=== PATIENT | male | born 1975 | race American Indian/Alaskan Native ===

== ENCOUNTER 2018-10-26 18:42 | Inpatient (IN) | payer OTHER ==
[2018-10-26] MEDS ORDERED: ASPIRIN PO ONE (20:23)
--- NOTE | 2018-10-26 21:27 | Emergency Department Report ---
ED Chest Pain HPI - General Chief Complaint: Chest Pain Stated Complaint: CHEST PAIN Time Seen by Provider: 10/26/18 21:12 Source: RN notes reviewed Mode of arrival: Ambulatory Limitations: No Limitations - History of Present Illness Initial Comments: Patient is 43 years old male with history of hypertension. Patient presented to the ER complaining of substernal chest pain, sharp was no radiation. Patient stated that pain has been going on for the last 2 days, intermittent. No relieving or aggravating factors. Patient also stated that he noticed that he started to have shortness of breath even when he woke up for a short distance. The patient denied any fever, chills, nausea or vomiting. MD Complaint: chest pain -: days(s) (2) Onset: during rest Pain Location: substernal Pain Radiation: none Severity: moderate Severity scale (0 -10): 5 Quality: sharp Consistency: intermittent Improves With: nothing Worsens With: nothing Treatments Prior to Arrival: none - Related Data Previous Rx's Medication Instructions Recorded Last Taken Type Butalb/Acetamin/Caff 50-325-40 1 tab PO Q6HR PRN #12 tab 06/03/18 Unknown Rx [Fioricet] Allergies Allergy/AdvReac Type Severity Reaction Status Date / Time No Known Allergies Allergy Unverified 06/03/18 21:33 Heart Score - HEART Score History: Moderately suspicious EKG: Non-specific Age: < 45 Risk factors: 1-2 risk factors Troponin: > 3x normal limit HEART Score: 5 - Critical Actions Critical Actions: 4-6 pts:12-16.6% risk of adverse cardiac event. Should be admitted ED Review of Systems ROS: Stated complaint: CHEST PAIN Other details as noted in HPI Comment: All other systems reviewed and negative Constitutional: denies: chills, fever ENT: denies: throat pain Cardiovascular: chest pain. denies: palpitations Gastrointestinal: denies: abdominal pain, nausea, vomiting, diarrhea, constipation, hematemesis, melena, hematochezia Musculoskeletal: denies: back pain Neurological: denies: headache, weakness, numbness, paresthesias, confusion, abnormal gait ED Past Medical Hx - Past Medical History Hx Hypertension: Yes - Social History Smoking Status: Unknown if ever smoked - Medications Home Medications: Home Medications Medication Instructions Recorded Confirmed Last Taken Type Butalb/Acetamin/Caff 50-325-40 1 tab PO Q6HR PRN #12 tab 06/03/18 Unknown Rx [Fioricet] ED Physical Exam - General Limitations: No Limitations General appearance: alert, in no apparent distress - Head Head exam: Present: atraumatic, normocephalic, normal inspection - Eye Eye exam: Present: normal appearance, PERRL - ENT ENT exam: Present: normal exam, normal orophraynx, mucous membranes moist - Neck Neck exam: Present: normal inspection, full ROM. Absent: tenderness, meningismus, lymphadenopathy, thyromegaly - Respiratory Respiratory exam: Present: normal lung sounds bilaterally. Absent: respiratory distress, wheezes, rales, rhonchi, chest wall tenderness, accessory muscle use, decreased breath sounds, prolonged expiratory - Cardiovascular Cardiovascular Exam: Present: regular rate, normal rhythm, normal heart sounds - GI/Abdominal GI/Abdominal exam: Present: soft, normal bowel sounds. Absent: distended, tenderness, guarding, rebound, rigid, organomegaly, mass, bruit, pulsatile mass, hernia - Extremities Exam Extremities exam: Present: normal inspection, full ROM, normal capillary refill - Back Exam Back exam: Present: normal inspection, full ROM. Absent: tenderness, CVA tenderness (R), CVA tenderness (L), muscle spasm, paraspinal tenderness, vertebral tenderness - Neurological Exam Neurological exam: Present: alert, oriented X3, CN II-XII intact - Skin Skin exam: Present: warm, intact, normal color ED Course Vital Signs 10/26/18 10/26/18 10/26/18 20:19 21:43 21:47 Temperature 98.2 F Pulse Rate 106 H 96 H 94 H Respiratory 16 16 Rate Blood Pressure 156/112 Blood Pressure [Right] O2 Sat by Pulse 95 98 Oximetry 10/26/18 10/26/18 10/26/18 21:52 21:59 22:01 Temperature Pulse Rate 95 H 99 H Respiratory 16 16 11 L Rate Blood Pressure 160/114 Blood Pressure 161/110 [Right] O2 Sat by Pulse 98 98 100 Oximetry NATHAN score - Nathan Score Age > 65: (0) No Aspirin use within the Past 7 Days: (0) No 3 or more CAD Risk Factors: (0) No 2 or more Angina events in past 24 hrs: (1) Yes Known CAD with more than 50% Stenosis: (0) No Elevated Cardiac Markers: (1) Yes ST Deviation Greater than 0.5mm: (1) Yes NATHAN Score: 3 ED Medical Decision Making - Lab Data Result diagrams: 10/26/18 21:17 10/26/18 21:17 - EKG Data -: EKG Interpreted by Me EKG shows normal: sinus rhythm Rate: tachycardia - EKG Data Interpretation: no acute changes - Radiology Data Radiology results: image reviewed interpreted by me: Chest x-ray showed pulmonary vascular congestion consistent with CHF. - Medical Decision Making Patient is 43 years old male with history of hypertension. Patient presented to the ER complaining of substernal chest pain, sharp was no radiation. Patient stated that pain has been going on for the last 2 days, intermittent. No relieving or aggravating factors. Patient also stated that he noticed that he s tarted to have shortness of breath even when he woke up for a short distance. The patient denied any fever, chills, nausea or vomiting. Patient EKG did not show any ST elevation or depression but he shows some inverted T waves. First troponin is positive as 0.04. Chest x-ray show pulmonary congestion consistent with CHF I discussed the patient is Dr. Dominguez from cardiology he stated that he will follow up with the patient. I discussed the patient with Dr. Peace Teixeira, she agreed to admit the patient to medical service. Critical Care Time: Yes Critical care time in (mins) excluding proc time.: 30 Critical care attestation.: If time is entered above; I have spent that time in minutes in the direct care of this critically ill patient, excluding procedure time. ED Disposition Clinical Impression: Chest pain, Unstable angina Disposition: OP ADMIT IP TO THIS HOSP Is pt being admited?: Yes Condition: Stable Instructions: Angina (ED), Chest Pain (ED) Referrals: PRIMARY CARE, [Primary Care Provider] - 3-5 Days
[2018-10-26 21:32] LABS: Basophils # (Auto) 0.1 K/mm3 (0.0-0.1); Basophils % (Auto) 1.1 % (0.0-1.8); Eosinophils # (Auto) 0.3 K/mm3 (0.0-0.4); Eosinophils % (Auto) 4.5 % (0.0-4.3); Hematocrit 39.6 % (35.5-45.6); Hemoglobin 13.5 gm/dl (11.8-15.2); Lymphocytes # (Auto) 2.5 K/mm3 (1.2-5.4); Lymphocytes % (Auto) 42.6 % (13.4-35.0); Mean Corpuscular HGB Conc 34 % (32-34); Mean Corpuscular Hemoglobin 29 pg (28-32); Mean Corpuscular Volume 86 fl (84-94); Monocytes # (Auto) 0.6 K/mm3 (0.0-0.8); Platelet Count 333 K/mm3 (140-440); Red Blood Count 4.63 M/mm3 (3.65-5.03); Red Cell Distribution Width 14.2 % (13.2-15.2)
[2018-10-26 21:39] LABS: INR 0.87 (0.87-1.13); Partial Thromboplastin Time 25.9 Sec. (24.2-36.6)
[2018-10-26 21:45] LABS: BUN/Creatinine Ratio 14; Blood Urea Nitrogen 13 mg/dL (9-20); Calcium 9.2 mg/dL (8.4-10.2); Hemolysis Index 27
[2018-10-26 22:28] LABS: Chol/HDL Ratio 3.94 %; HDL Cholesterol 51 mg/dL (40-59); LDL Cholesterol,Direct 127 mg/dL (50-130)
[2018-10-26] MEDS ORDERED: LASIX IV ONE (22:35)
[2018-10-26] MEDS ORDERED: NITROSTAT SL ONE (23:03)
[2018-10-26 23:19] LABS: Amphetamine Screen,Urine PRESUMPTIVE NEGATIVE; Benzodiazepines Screen,Urine PRESUMPTIVE NEGATIVE; Cannabinoid Screen,Urine PRESUMPTIVE NEGATIVE; Cocaine Screen,Urine PRESUMPTIVE NEGATIVE; Methadone Screen,Urine PRESUMPTIVE NEGATIVE; Opiate Screen,Urine PRESUMPTIVE NEGATIVE
--- NOTE | 2018-10-26 23:23 | XRay Report ---
PROCEDURE: XR CHEST 1V AP TECHNIQUE: Chest radiograph single view. HISTORY: Chest Pain COMPARISONS: None . FINDINGS: Heart: Normal. Mediastinum/Vessels: Mild degree of pulmonary venous congestion is noted.. Lungs/Pleural space: There are no confluent infiltrates or mass lesions. Pleural spaces are clear.. Bony thorax: No acute osseous abnormality. Life support devices: None. IMPRESSION: Mild degree of pulmonary venous congestion. This document is electronically signed by Sukhdev Russo MD., October 26 2018 11:21:35 PM ET
[2018-10-26 23:40] LABS: Bilirubin,Urine NEG (Negative); Blood,Urine NEG (Negative); Color,Urine Yellow (Yellow); Mucus,Urine FEW /HPF; Protein,Urine <15 mg/dL mg/dL (Negative)
--- NOTE | 2018-10-27 00:20 | History and Physical Report ---
History of Present Illness Date of examination: 10/27/18 History of present illness: 43 year old man man with a history of hypertension comes emergency room complaining of shortness of breath 1 week. Also complaining of PND, orthopnea and lower extremity edema. He admits to chest pain in the epigastric area 1 week described as sharp, intermittent every 30 minutes, no radiation, intensity 5/10. Admits to nausea and vomiting, shortness of breath, diaphoresis, no palpitation Review of systems Constitutional: no weight loss, chills, fever Ears, eyes, nose, mouth and throat: no nasal congestion, no nasal discharge, no sinus pressure, no vision change, no red eye. Neck: No neck pain or rigidity. Cardiovascular: no palpitations, +chest pain Respiratory: no cough, +shortness of breath Gastrointestinal: no hematochezia, abdominal pain Genitourinary : no frequency , no hematuria Musculoskeletal: no joint swelling or muscle ache Integumentary: no rash, no pruritis Neurological: no parathesias, no focal weakness Endocrine: no cold or heat intolerance, no polyuria or polydipsia Hematologic/Lymphatic: no easy bruising, no easy bleeding, no gland swelling Allergic/Immunologic: no urticaria, no angioedema. PAST MEDICAL HISTORY:hypertension PAST SURGICAL HISTORY: None SOCIAL HISTORY: Drinks a lot , no drugs, tobacco FAMILY HISTORY: Hypertension Medications and Allergies Allergies Allergy/AdvReac Type Severity Reaction Status Date / Time No Known Allergies Allergy Unverified 06/03/18 21:33 Home Medications Medication Instructions Recorded Confirmed Last Taken Type Butalb/Acetamin/Caff 50-325-40 1 tab PO Q6HR PRN #12 tab 06/03/18 Unknown Rx [Fioricet] Exam - Physical Exam Narrative exam: General Apperance: The patient lying in bed, breathing comfortable HEENT: Normocephalic, atraumatic. Pupils equally round and reactive to light, EOMI, no sclericterus or JVD or thyromegaly or nodule. , no carotid bruit, mucous membranes moist, no exudate or erythema Heart: S1-S2, regular is rhythm Lungs: crackles bilaterally, breathing comfortable Abdomen: Positive bowel sounds, soft, nontender, nondistended, no organomegaly Extremities: No edema cyanosis clubbing Skin: no rash, nodule, warm and dry Neuro: cranial nerves 2-12 intact, speech is fluent, motor/sensory intact - Constitutional Vitals: Temp Pulse Resp BP Pulse Ox 98.2 F 99 H 11 L 160/114 100 10/26/18 20:19 10/26/18 22:01 10/26/18 22:01 10/26/18 22:01 10/26/18 22:01 Results - Labs CBC & Chem 7: 10/26/18 21:17 10/26/18 21:17 Labs: Abnormal lab results 10/26/18 10/26/18 10/26/18 Range/Units 21:17 21:17 21:17 Lymph % (Auto) 42.6 H (13.4-35.0) % [place] % (Auto) 10.0 H (0.0-7.3) % Eos % (Auto) 4.5 H (0.0-4.3) % Glucose 125 H (75-100) mg/dL Troponin T 0.041 H (0.00-0.029) ng/mL NT-Pro-B Natriuret Pep 1090 H (0-450) pg/mL Triglycerides 249 H (2-149) mg/dL Cholesterol 201 H (50-199) mg/dL 10/26/18 Range/Units 23:23 Lymph % (Auto) (13.4-35.0) % [place] % (Auto) (0.0-7.3) % Eos % (Auto) (0.0-4.3) % Glucose (75-100) mg/dL Troponin T 0.035 H (0.00-0.029) ng/mL NT-Pro-B Natriuret Pep (0-450) pg/mL Triglycerides (2-149) mg/dL Cholesterol (50-199) mg/dL - Imaging and Cardiology EKG: image reviewed Chest x-ray: report reviewed Assessment and Plan Assessment New onset CHF Hypertension, uncontrolled Alcohol abuse Plan Admit to medicine Start IV Lasix, start beta nicola, ROSINA inhibitor, aspirin Monitor I's and O's, daily weights, check cardiac enzymes, echo Consult cardiology,start CIWA protocol with IV Ativan DVT prophylaxis
[2018-10-27] MEDS ORDERED: ATIVAN IV PRN ×2 (00:35)
[2018-10-27] MEDS ORDERED: MORPHINE IV PRN (00:36)
[2018-10-27] MEDS ORDERED: ZOFRAN IV PRN (00:36)
[2018-10-27] MEDS ORDERED: TYLENOL PO PRN (00:36)
[2018-10-27] MEDS ORDERED: SODIUM CHLORIDE FLUSH SYRINGE 10 ML IV PRN (00:36)
[2018-10-27] MEDS ORDERED: LASIX ONE (02:10)
[2018-10-27] MEDS ORDERED: ASPIRIN ONE (02:10)
[2018-10-27] MEDS ORDERED: NITROSTAT SL ONE (02:11)
[2018-10-27 02:26] LABS: Creatine Kinase MB 5.9 ng/mL (0.0-4.0)
[2018-10-27 06:39] LABS: Basophils # (Auto) 0.1 K/mm3 (0.0-0.1); Eosinophils # (Auto) 0.3 K/mm3 (0.0-0.4); Eosinophils % (Auto) 5.6 % (0.0-4.3); Hemoglobin 14.1 gm/dl (11.8-15.2); Lymphocytes # (Auto) 2.5 K/mm3 (1.2-5.4); Lymphocytes % (Auto) 46.5 % (13.4-35.0); Mean Corpuscular HGB Conc 34 % (32-34); Mean Corpuscular Hemoglobin 29 pg (28-32); Mean Corpuscular Volume 85 fl (84-94); Monocytes # (Auto) 0.6 K/mm3 (0.0-0.8); Monocytes % (Auto) 10.6 % (0.0-7.3); Platelet Count 323 K/mm3 (140-440); Red Blood Count 4.81 M/mm3 (3.65-5.03); Red Cell Distribution Width 14.1 % (13.2-15.2)
[2018-10-27] MEDS: LASIX IV SCH ×2 (06:46→17:51)
[2018-10-27] MEDS: BABY ASPIRIN PO SCH (09:52)
[2018-10-27] MEDS: ZESTRIL PO SCH (09:53)
[2018-10-27] MEDS: SODIUM CHLORIDE FLUSH SYRINGE 10 ML IV SCH ×2 (09:55→21:48)
[2018-10-27] MEDS: LOVENOX SUB-Q SCH (09:55)
[2018-10-27] MEDS: LOPRESSOR PO SCH ×2 (09:56→21:50)
[2018-10-27 12:06] LABS: Creatine Kinase MB 6.1 ng/mL (0.0-4.0)
--- NOTE | 2018-10-27 13:26 | Consultation ---
History of Present Illness Consult date: 10/27/18 Requesting physician: KIKA BISWAS Consult reason: chest pain, elevated troponin, shortness of breath History of present illness: The pt is a 43 year old man male with a past medical history of hypertension and ETOH use (drinks 12-pack beer daily). He is previously unknown to our practice. He presented with c/o SOB, KRAUS and chest pain for the past several weeks. He describes his chest pain as a midsternal throbbing pain which radiates down into his right arm. He mostly experiences the pain with exertion. He also reports constant epigastric pain over the past 1 week. He denies any prior cardiac issues, including CAD, AMI or HF. He denies any prior cardiac w/u. He has never been hospitalized. Past History Past Medical History: hypertension Social history: alcohol abuse Medications and Allergies Allergies Allergy/AdvReac Type Severity Reaction Status Date / Time No Known Allergies Allergy Unverified 06/03/18 21:33 Home Medications Medication Instructions Recorded Confirmed Last Taken Type Lisinopril [Prinivil] 10 mg PO DAILY 10/27/18 10/27/18 10/26/18 09:00 History hydroCHLOROthiazide [HCTZ] 12.5 mg PO DAILY 10/27/18 10/27/18 10/26/18 09:00 History Active Meds: Active Medications Acetaminophen (Tylenol) 650 mg PO Q4H PRN PRN Reason: Pain MILD(1-3)/Fever >100.5/HOWARD Aspirin (Baby Aspirin) 81 mg PO QDAY [facility] Last Admin: 10/27/18 09:52 Dose: 81 mg Documented by: Enoxaparin Sodium (Lovenox) 40 mg SUB-Q QDAY [facility] Last Admin: 10/27/18 09:55 Dose: 40 mg Documented by: Furosemide (Lasix) 40 mg IV BID@0600,1800 [facility] Last Admin: 10/27/18 06:46 Dose: 40 mg Documented by: Lisinopril (Zestril) 2.5 mg PO QDAY [facility] Last Admin: 10/27/18 09:53 Dose: 2.5 mg Documented by: Lorazepam (Ativan) 2 mg IV Q1HR PRN PRN Reason: CIWA-Ar 8-15 Lorazepam (Ativan) 4 mg IV Q1HR PRN PRN Reason: CIWA-Ar 16-25 Metoprolol Tartrate (Lopressor) 12.5 mg PO BID [facility] Last Admin: 10/27/18 09:56 Dose: 12.5 mg Documented by: Morphine Sulfate (Morphine) 2 mg IV Q4H PRN PRN Reason: Pain, Moderate (4-6) Ondansetron HCl (Zofran) 4 mg IV Q4H PRN PRN Reason: Nausea And Vomiting Sodium Chloride (Sodium Chloride Flush Syringe 10 Ml) 10 ml IV BID [facility] Last Admin: 10/27/18 09:55 Dose: 10 ml Documented by: Sodium Chloride (Sodium Chloride Flush Syringe 10 Ml) 10 ml IV PRN PRN PRN Reason: LINE FLUSH Review of Systems Constitutional: no weight loss, no weight gain, no fever, no chills, no sweats Ears, nose, mouth and throat: no ear pain, no nose pain, no sinus pressure, no sinus pain Cardiovascular: chest pain, shortness of breath, dyspnea on exertion, high blood pressure, decreased exercise tolerance, no orthopnea, no palpitations, no rapid/irregular heart beat, no edema, no syncope, no lightheadedness, no leg edema Respiratory: shortness of breath, dyspnea on exertion, no cough, no congestion, no wheezing, no pain on inspiration Gastrointestinal: abdominal pain (epigastric), no nausea, no vomiting, no diarrhea, no constipation, no change in bowel habits Genitourinary Male: no dysuria, no hematuria, no flank pain, no discharge, no urinary frequency, no urinary hesitancy Musculoskeletal: no neck stiffness, no neck pain, no shooting arm pain, no arm numbness/tingling, no low back pain, no shooting leg pain Integumentary: no rash, no pruritis, no redness, no sores, no wounds Neurological: no head injury, no paralysis, no weakness, no parathesias, no numbness, no tingling, no seizures, no syncope Psychiatric: no anxiety Endocrine: no cold intolerance, no heat intolerance Hematologic/Lymphatic: no easy bruising, no easy bleeding Allergic/Immunologic: no urticaria, no wheezing Physical Examination Vital Signs Temp Pulse Resp BP Pulse Ox 98.2 F 106 H 16 156/112 95 10/26/18 20:19 10/26/18 20:19 10/26/18 20:19 10/26/18 20:19 10/26/18 20:19 General appearance: no acute distress HEENT: Positive: PERRL, Normocephaly, Mucus Membranes Moist Neck: Positive: neck supple, trachea midline Cardiac: Positive: Reg Rate and Rhythm, S1/S2 Lungs: Positive: Decreased Breath Sounds Neuro: Positive: Grossly Intact Abdomen: Positive: Soft. Negative: Tender Skin: Negative: Rash Musculoskeletal: No Pain Extremities: Absent: edema Results 10/27/18 05:56 10/26/18 21:17 Cardiac Enzymes 10/27/18 10/27/18 Range/Units 01:59 10:50 CK-MB (CK-2) 5.9 H 6.1 H (0.0-4.0) ng/mL Coagulation 10/26/18 Range/Units 21:17 PT 12.4 (12.2-14.9) Sec. INR 0.87 (0.87-1.13) APTT 25.9 (24.2-36.6) Sec. Lipids 10/26/18 Range/Units 21:17 Triglycerides 249 H (2-149) mg/dL Cholesterol 201 H (50-199) mg/dL HDL Cholesterol 51 (40-59) mg/dL Cholesterol/HDL Ratio 3.94 % CBC 10/26/18 10/27/18 Range/Units 21:17 05:56 WBC 6.0 5.3 (4.5-11.0) K/mm3 RBC 4.63 4.81 (3.65-5.03) M/mm3 Hgb 13.5 14.1 (11.8-15.2) gm/dl Hct 39.6 41.0 (35.5-45.6) % Plt Count 333 323 (140-440) K/mm3 Lymph # 2.5 2.5 (1.2-5.4) K/mm3 [place] # 0.6 0.6 (0.0-0.8) K/mm3 Eos # 0.3 0.3 (0.0-0.4) K/mm3 Baso # 0.1 0.1 (0.0-0.1) K/mm3 Comprehensive Metabolic Panel 10/26/18 Range/Units 21:17 Sodium 142 (137-145) mmol/L Potassium 4.3 (3.6-5.0) mmol/L Chloride 106.6 (98-107) mmol/L Carbon Dioxide 25 (22-30) mmol/L BUN 13 (9-20) mg/dL Creatinine 0.9 (0.8-1.5) mg/dL Glucose 125 H (75-100) mg/dL Calcium 9.2 (8.4-10.2) mg/dL - Imaging and Cardiology Echo: pending EKG: report reviewed, image reviewed EKG interpretations - Telemetry EKG Rhythm: Sinus Rhythm - EKG Sinus rhythms and dysrhythmias: sinus rhythm Chamber hypertrophy or enlargement: left ventricular hypertro Assessment and Plan Cont present cardiac management. F/u echo. Proceed with lexiscan MPI stress test in AM. NPO after MN. The patient has been seen in conjunction with Dr. Emilia Jensen who agrees with the assessment and plan of care. - Patient Problems (1) Acute heart failure Current Visit: Yes Status: Acute (2) Chest pain Current Visit: Yes Status: Acute (3) Elevated troponin Current Visit: Yes Status: Acute (4) HTN (hypertension) Current Visit: Yes Status: Chronic (5) EtOH dependence Current Visit: Yes Status: Chronic
--- NOTE | 2018-10-27 16:06 | Event Note ---
Date: 10/27/18 Patient was seen and evaluated this morning, patient said shortness of breath and leg swelling is getting better. Patient admitted earlier this morning. Continue management per H&P.
[2018-10-28 06:31] LABS: BUN/Creatinine Ratio 21; Blood Urea Nitrogen 23 mg/dL (9-20); Calcium 9.5 mg/dL (8.4-10.2); Hemolysis Index 49
[2018-10-28] MEDS: LASIX IV SCH ×2 (06:31→19:49)
[2018-10-28] MEDS ORDERED: LEXISCAN IV ONE ×2 (08:13→08:18)
[2018-10-28] MEDS: BABY ASPIRIN PO SCH (12:58)
[2018-10-28] MEDS: LOPRESSOR PO SCH ×2 (12:59→21:38)
[2018-10-28] MEDS: LOVENOX SUB-Q SCH (13:00)
[2018-10-28] MEDS: SODIUM CHLORIDE FLUSH SYRINGE 10 ML IV SCH ×2 (13:09→21:40)
[2018-10-28] MEDS: ZESTRIL PO SCH (13:18)
--- NOTE | 2018-10-28 14:54 | Progress Note ---
Assessment and Plan S/p stress test this AM which was negative for ischemia, EF 35%. F/u echo. Cont present cardiac management. The patient has been seen in conjunction with Dr. Emilia Jensen who agrees with the assessment and plan of care. - Patient Problems (1) Acute heart failure Current Visit: Yes Status: Acute (2) Chest pain Current Visit: Yes Status: Acute (3) Elevated troponin Current Visit: Yes Status: Acute (4) HTN (hypertension) Current Visit: Yes Status: Chronic (5) EtOH dependence Current Visit: Yes Status: Chronic Subjective Date of service: 10/28/18 Principal diagnosis: HF Interval history: pt for stress test Objective Last Vital Signs Temp 97.9 F 10/28/18 11:58 Pulse 88 10/28/18 12:59 Resp 18 10/28/18 11:58 BP 123/92 10/28/18 12:59 Pulse Ox 94 10/28/18 11:58 - Physical Examination General: No Apparent Distress HEENT: Positive: PERRL, Normocephaly, Mucus Membranes Moist Neck: Positive: neck supple, trachea midline Cardiac: Positive: Reg Rate and Rhythm, S1/S2 Lungs: Positive: Decreased Breath Sounds Neuro: Positive: Grossly Intact Abdomen: Positive: Soft. Negative: Tender Skin: Negative: Rash Musculoskeletal: No Pain Extremities: Absent: edema - Labs and Meds Comprehensive Metabolic Panel 10/28/18 Range/Units 04:18 Sodium 142 (137-145) mmol/L Potassium 4.0 (3.6-5.0) mmol/L Chloride 100.4 (98-107) mmol/L Carbon Dioxide 26 (22-30) mmol/L BUN 23 H (9-20) mg/dL Creatinine 1.1 (0.8-1.5) mg/dL Glucose 101 H (75-100) mg/dL Calcium 9.5 (8.4-10.2) mg/dL - Imaging and Cardiology EKG: report reviewed, image reviewed Echo: pending - EKG Sinus rhythms and dysrhythmias: sinus rhythm Chamber hypertrophy or enlargement: left ventricular hypertro
--- NOTE | 2018-10-28 15:44 | Treadmill Report ---
NUCLEAR PERFUSION SCAN REFERRING PHYSICIAN: Hospitalist service. PROTOCOL: The patient was brought to the stress lab in a postoperative state, given 10 mCi of technetium at rest. The patient underwent rest imaging. The patient underwent Lexiscan stress test per standard protocol. At peak stress, the patient was given 32 mCi of technetium 99m. Shortly thereafter, the patient underwent stress imaging. Raw imaging reveals mild GI artifact. No significant motion effect. SPECT imaging examined carefully in horizontal long axis, vertical long axis, short axis views. There is normal homogenous uptake of radioisotope in all reported segments. No evidence of significant fixed or reversible perfusion defects suggestive of prior infarction or ischemia. Gated wall motion visually reveals a moderate global left ventricular hypokinesis with an estimated ejection fraction of 35-40%. No TID. CONCLUSIONS: 1. Normal myocardial perfusion scan without evidence of active ischemia or prior infarction. 2. Moderate LV dysfunction, estimated ejection fraction of 35-40%. No TID. JOB# [id number] ABRIL/HAROLDO
--- NOTE | 2018-10-28 16:19 | Progress Note ---
Assessment and Plan Assessment and plan: Acute systolic CHF - Patient is on IV Lasix, metoprolol and lisinopril - Ischemic workup is done and negative for acute ischemia, ejection fraction is 35%. - We'll follow echo - Cardiology consult appreciated DVT prophylaxis Disposition - Possible discharge tomorrow after echo result and cardiology recommendation. History Interval history: Patient does and evaluated this morning, patient said shortness of breath is getting better. Hospitalist Physical - Physical exam Narrative exam: Not in cardiopulmonary distress. The patient appeared well nourished and normally developed. Vital signs as documented. Head exam is unremarkable. No scleral icterus . Neck is without jugular venous distension, thyromegaly, or carotid bruits. Lungs are clear to auscultation. Cardiac exam reveals regular rate and Rhythm. Abdominal exam reveals normal bowel sounds. Extremities are nonedematous and both femoral and pedal pulses are normal. 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 No focal weakness. - Constitutional Vitals: Temp Pulse Resp BP Pulse Ox 97.9 F 88 18 123/92 94 10/28/18 11:58 10/28/18 12:59 10/28/18 11:58 10/28/18 12:59 10/28/18 11:58 General appearance: Present: no acute distress Results - Labs CBC & Chem 7: 10/27/18 05:56 10/28/18 04:18 Labs: Laboratory Last Values WBC 5.3 K/mm3 (4.5-11.0) 10/27/18 05:56 RBC 4.81 M/mm3 (3.65-5.03) 10/27/18 05:56 Hgb 14.1 gm/dl (11.8-15.2) 10/27/18 05:56 Hct 41.0 % (35.5-45.6) 10/27/18 05:56 MCV 85 fl (84-94) 10/27/18 05:56 MCH 29 pg (28-32) 10/27/18 05:56 MCHC 34 % (32-34) 10/27/18 05:56 RDW 14.1 % (13.2-15.2) 10/27/18 05:56 Plt Count 323 K/mm3 (140-440) 10/27/18 05:56 Lymph % (Auto) 46.5 % (13.4-35.0) H 10/27/18 05:56 [place] % (Auto) 10.6 % (0.0-7.3) H 10/27/18 05:56 Eos % (Auto) 5.6 % (0.0-4.3) H 10/27/18 05:56 Baso % (Auto) 1.0 % (0.0-1.8) 10/27/18 05:56 Lymph # 2.5 K/mm3 (1.2-5.4) 10/27/18 05:56 [place] # 0.6 K/mm3 (0.0-0.8) 10/27/18 05:56 Eos # 0.3 K/mm3 (0.0-0.4) 10/27/18 05:56 Baso # 0.1 K/mm3 (0.0-0.1) 10/27/18 05:56 Seg Neutrophils % 36.3 % (40.0-70.0) L 10/27/18 05:56 Seg Neutrophils # 1.9 K/mm3 (1.8-7.7) 10/27/18 05:56 PT 12.4 Sec. (12.2-14.9) 10/26/18 21:17 INR 0.87 (0.87-1.13) 10/26/18 21:17 APTT 25.9 Sec. (24.2-36.6) 10/26/18 21:17 D-Dimer 217.25 ng/mlDDU (0-234) 10/26/18 21:17 Sodium 142 mmol/L (137-145) 10/28/18 04:18 Potassium 4.0 mmol/L (3.6-5.0) 10/28/18 04:18 Chloride 100.4 mmol/L (98-107) 10/28/18 04:18 Carbon Dioxide 26 mmol/L (22-30) 10/28/18 04:18 Anion Gap 20 mmol/L 10/28/18 04:18 BUN 23 mg/dL (9-20) H 10/28/18 04:18 Creatinine 1.1 mg/dL (0.8-1.5) 10/28/18 04:18 Estimated GFR > 60 ml/min 10/28/18 04:18 BUN/Creatinine Ratio 21 % 10/28/18 04:18 Glucose 101 mg/dL (75-100) H 10/28/18 04:18 Calcium 9.5 mg/dL (8.4-10.2) 10/28/18 04:18 Total Creatine Kinase 363 units/L (55-170) H 10/27/18 10:50 CK-MB (CK-2) 6.1 ng/mL (0.0-4.0) H 10/27/18 10:50 CK-MB (CK-2) Rel Index 1.6 (0-4) 10/27/18 10:50 Troponin T 0.020 ng/mL (0.00-0.029) 10/27/18 10:50 NT-Pro-B Natriuret Pep 1090 pg/mL (0-450) H 10/26/18 21:17 Triglycerides 249 mg/dL (2-149) H 10/26/18 21:17 Cholesterol 201 mg/dL (50-199) H 10/26/18 21:17 LDL Cholesterol Direct 127 mg/dL (50-130) 10/26/18 21:17 HDL Cholesterol 51 mg/dL (40-59) 10/26/18 21:17 Cholesterol/HDL Ratio 3.94 % 10/26/18 21:17 Urine Color Yellow (Yellow) 10/26/18 22:25 Urine Turbidity Clear (Clear) 10/26/18 22:25 Urine pH 6.0 (5.0-7.0) 10/26/18 22:25 Ur Specific [place] 1.026 (1.003-1.030) 10/26/18 22:25 Urine Protein <15 mg/dl mg/dL (Negative) 10/26/18 22:25 Urine Glucose (UA) Neg mg/dL (Negative) 10/26/18 22:25 Urine Ketones Neg mg/dL (Negative) 10/26/18 22:25 Urine Blood Neg (Negative) 10/26/18 22:25 Urine Nitrite Neg (Negative) 10/26/18 22:25 Urine Bilirubin Neg (Negative) 10/26/18 22:25 Urine Urobilinogen 2.0 mg/dL (<2.0) 10/26/18 22:25 Ur Leukocyte Esterase Neg (Negative) 10/26/18 22:25 Urine WBC (Auto) 1.0 /HPF (0.0-6.0) 10/26/18 22:25 Urine RBC (Auto) 3.0 /HPF (0.0-6.0) 10/26/18 22:25 Urine Mucus Few /HPF 10/26/18 22:25 Urine Opiates Screen Presumptive negative 10/26/18 22:25 Urine Methadone Screen Presumptive negative 10/26/18 22:25 Ur Barbiturates Screen Presumptive negative 10/26/18 22:25 Ur Phencyclidine Scrn Presumptive negative 10/26/18 22:25 Ur Amphetamines Screen Presumptive negative 10/26/18 22:25 U Benzodiazepines Scrn Presumptive negative 10/26/18 22:25 Urine Cocaine Screen Presumptive negative 10/26/18 22:25 U Marijuana (THC) Screen Presumptive negative 10/26/18 22:25 Drugs of Abuse Note Disclamer 10/26/18 22:25 Active Medications - Current Medications Current Medications: Generic Name Dose Route Start Last Admin Trade Name Freq PRN Reason Stop Dose Admin Acetaminophen 650 mg 10/27/18 00:36 Tylenol PO Q4H PRN Pain MILD(1-3)/Fever >100.5/HOWARD Aspirin 81 mg 10/27/18 10:00 10/28/18 12:58 Baby Aspirin PO 81 mg QDAY GLYNN Administration Enoxaparin Sodium 40 mg 10/27/18 10:00 10/28/18 13:00 Lovenox SUB-Q 40 mg QDAY GLYNN Administration Furosemide 40 mg 10/27/18 06:00 10/28/18 06:31 Lasix IV 40 mg BID@0600,1800 GLYNN Administration Lisinopril 2.5 mg 10/27/18 10:00 10/28/18 13:18 Zestril PO 2.5 mg QDAY GYLNN Administration Lorazepam 2 mg 10/27/18 00:35 Ativan IV Q1HR PRN CIWA-Ar 8-15 Lorazepam 4 mg 10/27/18 00:35 Ativan IV Q1HR PRN CIWA-Ar 16-25 Metoprolol Tartrate 12.5 mg 10/27/18 10:00 10/28/18 12:59 Lopressor PO 12.5 mg BID GLYNN Administration Morphine Sulfate 2 mg 10/27/18 00:36 Morphine IV Q4H PRN Pain, Moderate (4-6) Ondansetron HCl 4 mg 03/27/19 00:36 Zofran IV Q4H PRN Nausea And Vomiting Sodium Chloride 10 ml 10/27/18 10:00 10/28/18 13:09 Sodium Chloride Flush Syringe 10 Ml IV 10 ml BID GLYNN Administration Sodium Chloride 10 ml 10/27/18 00:36 Sodium Chloride Flush Syringe 10 Ml IV PRN PRN LINE FLUSH Nutrition/Malnutrition Assess - Dietary Evaluation Nutrition/Malnutrition Findings: Nutrition Notes Start: 10/27/18 10:20 Freq: Status: Active Protocol: Document 10/27/18 10:20 RD (Rec: 10/27/18 10:41 RD [email or web address]) Co-Sign 10/27/18 10:20 LP Nutrition Notes 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 No Cyrus Score recorded. Per MD report, skin warm and intact. Pt reports eating well and having a good appetite. Pt eating most of meals and reports no N/V or recent wt changes. Nutrition Intervention Revisit per MD consult or patient Sign Off request:
[2018-10-29] MEDS: LASIX IV SCH ×2 (06:29→18:31)
[2018-10-29 06:32] LABS: BUN/Creatinine Ratio 22; Blood Urea Nitrogen 29 mg/dL (9-20); Calcium 9.6 mg/dL (8.4-10.2); Hemolysis Index 4
[2018-10-29] MEDS: ZESTRIL PO SCH (09:34)
[2018-10-29] MEDS: LOPRESSOR PO SCH (09:34)
[2018-10-29] MEDS: LOVENOX SUB-Q SCH (09:35)
[2018-10-29] MEDS: BABY ASPIRIN PO SCH (09:35)
[2018-10-29] MEDS: SODIUM CHLORIDE FLUSH SYRINGE 10 ML IV SCH (10:00)
--- NOTE | 2018-10-29 11:09 | Progress Note ---
Assessment and Plan 43yo aam: 1. Acute HFrEF * severe nicm (10-15%) * likely due to htn and etoh abuse * near euvolemia * double bb * lifevest - Patient Problems (1) Acute heart failure Current Visit: Yes Status: Acute (2) EtOH dependence Current Visit: Yes Status: Chronic (3) HTN (hypertension) Current Visit: Yes Status: Chronic Subjective Date of service: 10/29/18 Principal diagnosis: HF Interval history: feels a lot better at bedside Objective Vital Signs Temp Pulse Resp BP BP Pulse Ox 10/29/18 09:34 86 110/78 10/29/18 08:33 97.8 F 66 18 110/75 98 10/29/18 04:25 67 10/29/18 04:00 98.1 F 71 18 110/73 99 10/28/18 23:38 98.4 F 73 18 85/55 96 10/28/18 21:38 88 139/87 10/28/18 20:00 98.2 F 81 18 139/87 97 10/28/18 19:30 81 10/28/18 16:34 98.9 F 86 18 130/93 98 10/28/18 12:59 88 123/92 10/28/18 11:58 97.9 F 88 18 123/92 94 - Physical Examination General: No Apparent Distress HEENT: Positive: PERRL, Normocephaly, Mucus Membranes Moist Neck: Positive: neck supple, trachea midline Neuro: Positive: Grossly Intact Abdomen: Positive: Soft. Negative: Tender Skin: Negative: Rash Musculoskeletal: No Pain Extremities: Absent: edema - Labs and Meds Comprehensive Metabolic Panel 10/28/18 10/29/18 Range/Units 22:06 06:01 Sodium 139 (137-145) mmol/L Potassium 3.8 3.7 (3.6-5.0) mmol/L Chloride 100.8 (98-107) mmol/L Carbon Dioxide 28 (22-30) mmol/L BUN 29 H (9-20) mg/dL Creatinine 1.3 (0.8-1.5) mg/dL Glucose 106 H (75-100) mg/dL Calcium 9.6 (8.4-10.2) mg/dL - Imaging and Cardiology EKG: report reviewed, image reviewed Echo: pending - EKG Sinus rhythms and dysrhythmias: sinus rhythm Chamber hypertrophy or enlargement: left ventricular hypertro
[2018-10-29 12:49] VITALS: BP 130/90
--- NOTE | 2018-10-29 14:13 | Progress Note ---
Assessment and Plan Assessment and plan: Acute systolic CHF - Patient is on IV Lasix, metoprolol and lisinopril - Ischemic workup is done and negative for acute ischemia - Echo eas done and showed EF of 15% and cardiology recommend to have vets b efore discharge - Cardiology consult appreciated DVT prophylaxis Disposition - will be discharged once patient get life vest. History Interval history: Patient does and evaluated this morning, patient said shortness of breath is getting better. Hospitalist Physical - Physical exam Narrative exam: Not in cardiopulmonary distress. The patient appeared well nourished and normally developed. Vital signs as documented. Head exam is unremarkable. No scleral icterus . Neck is without jugular venous distension, thyromegaly, or carotid bruits. Lungs are clear to auscultation. Cardiac exam reveals regular rate and Rhythm. Abdominal exam reveals normal bowel sounds. Extremities are nonedematous and both femoral and pedal pulses are normal. WEB ARCHITECT: Alert and oriented 3. No focal weakness. - Constitutional Vitals: Temp Pulse Resp BP Pulse Ox 98.3 F 70 18 130/90 100 10/29/18 12:47 10/29/18 12:47 10/29/18 12:47 10/29/18 12:47 10/29/18 14:05 General appearance: Present: no acute distress Results - Labs CBC & Chem 7: 10/27/18 05:56 10/29/18 06:01 Labs: Laboratory Last Values WBC 5.3 K/mm3 (4.5-11.0) 10/27/18 05:56 RBC 4.81 M/mm3 (3.65-5.03) 10/27/18 05:56 Hgb 14.1 gm/dl (11.8-15.2) 10/27/18 05:56 Hct 41.0 % (35.5-45.6) 10/27/18 05:56 MCV 85 fl (84-94) 10/27/18 05:56 MCH 29 pg (28-32) 10/27/18 05:56 MCHC 34 % (32-34) 10/27/18 05:56 RDW 14.1 % (13.2-15.2) 10/27/18 05:56 Plt Count 323 K/mm3 (140-440) 10/27/18 05:56 Lymph % (Auto) 46.5 % (13.4-35.0) H 10/27/18 05:56 [place] % (Auto) 10.6 % (0.0-7.3) H 10/27/18 05:56 Eos % (Auto) 5.6 % (0.0-4.3) H 10/27/18 05:56 Baso % (Auto) 1.0 % (0.0-1.8) 10/27/18 05:56 Lymph # 2.5 K/mm3 (1.2-5.4) 10/27/18 05:56 [place] # 0.6 K/mm3 (0.0-0.8) 10/27/18 05:56 Eos # 0.3 K/mm3 (0.0-0.4) 10/27/18 05:56 Baso # 0.1 K/mm3 (0.0-0.1) 10/27/18 05:56 Seg Neutrophils % 36.3 % (40.0-70.0) L 10/27/18 05:56 Seg Neutrophils # 1.9 K/mm3 (1.8-7.7) 10/27/18 05:56 PT 12.4 Sec. (12.2-14.9) 10/26/18 21:17 INR 0.87 (0.87-1.13) 10/26/18 21:17 APTT 25.9 Sec. (24.2-36.6) 10/26/18 21:17 D-Dimer 217.25 ng/mlDDU (0-234) 10/26/18 21:17 Sodium 139 mmol/L (137-145) 10/29/18 06:01 Potassium 3.7 mmol/L (3.6-5.0) 10/29/18 06:01 Chloride 100.8 mmol/L (98-107) 10/29/18 06:01 Carbon Dioxide 28 mmol/L (22-30) 10/29/18 06:01 Anion Gap 14 mmol/L 10/29/18 06:01 BUN 29 mg/dL (9-20) H 10/29/18 06:01 Creatinine 1.3 mg/dL (0.8-1.5) 10/29/18 06:01 Estimated GFR > 60 ml/min 10/29/18 06:01 BUN/Creatinine Ratio 22 % 10/29/18 06:01 Glucose 106 mg/dL (75-100) H 10/29/18 06:01 Calcium 9.6 mg/dL (8.4-10.2) 10/29/18 06:01 Total Creatine Kinase 363 units/L (55-170) H 10/27/18 10:50 CK-MB (CK-2) 6.1 ng/mL (0.0-4.0) H 10/27/18 10:50 CK-MB (CK-2) Rel Index 1.6 (0-4) 10/27/18 10:50 Troponin T 0.020 ng/mL (0.00-0.029) 10/27/18 10:50 NT-Pro-B Natriuret Pep 1090 pg/mL (0-450) H 10/26/18 21:17 Triglycerides 249 mg/dL (2-149) H 10/26/18 21:17 Cholesterol 201 mg/dL (50-199) H 10/26/18 21:17 LDL Cholesterol Direct 127 mg/dL (50-130) 10/26/18 21:17 HDL Cholesterol 51 mg/dL (40-59) 10/26/18 21:17 Cholesterol/HDL Ratio 3.94 % 10/26/18 21:17 Urine Color Yellow (Yellow) 10/26/18 22:25 Urine Turbidity Clear (Clear) 10/26/18 22:25 Urine pH 6.0 (5.0-7.0) 10/26/18 22:25 Ur Specific [place] 1.026 (1.003-1.030) 10/26/18 22:25 Urine Protein <15 mg/dl mg/dL (Negative) 10/26/18 22:25 Urine Glucose (UA) Neg mg/dL (Negative) 10/26/18 22:25 Urine Ketones Neg mg/dL (Negative) 10/26/18 22:25 Urine Blood Neg (Negative) 10/26/18 22:25 Urine Nitrite Neg (Negative) 10/26/18 22:25 Urine Bilirubin Neg (Negative) 10/26/18 22:25 Urine Urobilinogen 2.0 mg/dL (<2.0) 10/26/18 22:25 Ur Leukocyte Esterase Neg (Negative) 10/26/18 22:25 Urine WBC (Auto) 1.0 /HPF (0.0-6.0) 10/26/18 22:25 Urine RBC (Auto) 3.0 /HPF (0.0-6.0) 10/26/18 22:25 Urine Mucus Few /HPF 10/26/18 22:25 Urine Opiates Screen Presumptive negative 10/26/18 22:25 Urine Methadone Screen Presumptive negative 10/26/18 22:25 Ur Barbiturates Screen Presumptive negative 10/26/18 22:25 Ur Phencyclidine Scrn Presumptive negative 10/26/18 22:25 Ur Amphetamines Screen Presumptive negative 10/26/18 22:25 U Benzodiazepines Scrn Presumptive negative 10/26/18 22:25 Urine Cocaine Screen Presumptive negative 10/26/18 22:25 U Marijuana (THC) Screen Presumptive negative 10/26/18 22:25 Drugs of Abuse Note Disclamer 10/26/18 22:25 Active Medications - Current Medications Current Medications: Generic Name Dose Route Start Last Admin Trade Name Freq PRN Reason Stop Dose Admin Acetaminophen 650 mg 10/27/18 00:36 Tylenol PO Q4H PRN Pain MILD(1-3)/Fever >100.5/HOWARD Aspirin 81 mg 10/27/18 10:00 10/29/18 09:35 Baby Aspirin PO 81 mg QDAY GLYNN Administration Enoxaparin Sodium 40 mg 10/27/18 10:00 10/29/18 09:35 Lovenox SUB-Q 40 mg QDAY GLYNN Administration Furosemide 40 mg 10/27/18 06:00 10/29/18 06:29 Lasix IV 40 mg BID@0600,1800 GLYNN Administration Lisinopril 2.5 mg 10/27/18 10:00 10/29/18 09:34 Zestril PO 2.5 mg QDAY GLYNN Administration Lorazepam 2 mg 10/27/18 00:35 Ativan IV Q1HR PRN CIWA-Ar 8-15 Lorazepam 4 mg 10/27/18 00:35 Ativan IV Q1HR PRN CIWA-Ar 16-25 Metoprolol Tartrate 25 mg 10/29/18 22:00 Lopressor PO BID GLYNN Morphine Sulfate 2 mg 10/27/18 00:36 Morphine IV Q4H PRN Pain, Moderate (4-6) Ondansetron HCl 4 mg 10/27/18 00:36 Zofran IV Q4H PRN Nausea And Vomiting Sodium Chloride 10 ml 10/27/18 10:00 10/29/18 10:00 Sodium Chloride Flush Syringe 10 Ml IV 10 ml BID GLYNN Administration Sodium Chloride 10 ml 10/27/18 00:36 10/29/18 06:30 Sodium Chloride Flush Syringe 10 Ml IV 10 ml PRN PRN Administration LINE FLUSH Nutrition/Malnutrition Assess - Dietary Evaluation Nutrition/Malnutrition Findings: Nutrition Notes Start: 10/27/18 10:20 Freq: Status: Active Protocol: Document 10/27/18 10:20 RD (Rec: 10/27/18 10:41 RD [email or web address]) Co-Sign 10/27/18 10:20 LP Nutrition Notes 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 No Cyrus Score recorded. Per MD report, skin warm and intact. Pt reports eating well and having a good appetite. Pt eating most of meals and reports no N/V or recent wt changes. Nutrition Intervention Revisit per MD consult or patient Sign Off request:
--- NOTE | 2018-10-29 14:20 | Discharge Summary ---
Providers - Providers Date of Admission: 10/27/18 00:19 Attending physician: GUSTAVO MYERS MD 10/26/18 23:08 Consult to Physician [CONS] Stat Comment: Dr. Donovan spoke with Dr. Evangelista @ 3600 Consulting Provider: CHI EVANGELISTA Physician Instructions: Reason For Exam: chest pain, elevated troponin, new onset CHF Primary care physician: MEASUREMENT TECHNICIAN Hospitalization Reason for admission: acute combine systolic and diastolic CHF Condition: Stable Pertinent studies: CXR IMPRESSION: Mild degree of pulmonary venous congestion Echo 15-20% abnormal diastolic function Hospital course: 43 year old man man with a history of hypertension comes emergency room complaining of shortness of breath 1 week. Also complaining of PND, orthopnea and lower extremity edema. He admits to chest pain in the epigastric area 1 week described as sharp, intermittent every 30 minutes, no radiation, intensity 5/10. Admits to nausea and vomiting, shortness of breath, diaphoresis, no palpitation. patient was admitted and treated for acute systolic CHF. Echo was done and EF 10-15%, abnormal diastolic function and cardiology recommend to continue appropriate CHF medication, was given life vest. Ischemic work up was done and negative for ischemia, and CHF is likely due to alcohol induced and advised to abstain from alcohol. Patient was given appointment to have follow up with PCP in 1 week and cardiology follow up in 2 weeks. patient was hemodynamically stable at the time of discharge. Patient's questions and concerns were addressed at the bedside. Disposition: -01 TO HOME OR SELFCARE Time spent for discharge: 32 minutes - Discharge Diagnoses (1) Chest pain Status: Acute (2) Dyspnea Status: Acute (3) Elevated troponin Status: Acute (4) Unstable angina Status: Acute (5) EtOH dependence Status: Chronic (6) HTN (hypertension) Status: Chronic (7) Acute combined systolic and diastolic CHF, NYHA class 4 Status: Acute Core Measure Documentation - Palliative Care Palliative Care/ Comfort Measures: Not Applicable - Core Measures Any of the following diagnoses?: heart failure - Heart Failure Discharge Requirements ROSINA/ARB for LVSD if EF <40%: Yes Beta nicola at discharge: Yes Exam - Physical Exam Narrative exam: Not in cardiopulmonary distress. The patient appeared well nourished and normally developed. Vital signs as documented. Head exam is unremarkable. No scleral icterus . Neck is without jugular venous distension, thyromegaly, or carotid bruits. Lungs are clear to auscultation. Cardiac exam reveals regular rate and Rhythm. Abdominal exam reveals normal bowel sounds. Extremities are nonedematous and both femoral and pedal pulses are normal. 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 No focal weakness. - Constitutional Vitals: Temp Pulse Resp BP Pulse Ox 98.3 F 70 18 130/90 100 10/29/18 12:47 10/29/18 12:47 10/29/18 12:47 10/29/18 12:47 10/29/18 14:05 Plan Activity: no restrictions Weight Bearing Status: Full Weight Bearing Diet: low cholesterol, low salt Follow up with: PRIMARY CAREMD [Primary Care Provider] - 3-5 Days HECTOR GOSS MD [Staff Physician] - 7 Days SHIRLENE MENDEZ MD [Staff Physician] - 14 Days Prescriptions: Aspirin [Aspirin BABY CHEW TAB] 81 mg PO QDAY #30 tab.chew Furosemide [Lasix TAB] 40 mg PO QDAY #30 tablet Metoprolol [Lopressor TAB] 25 mg PO BID #60 tablet Lisinopril [Prinivil] 10 mg PO DAILY #30 tablet
[2018-10-29] MEDS ORDERED: LOPRESSOR PO SCH (22:00)
== END 2018-10-29 19:24 | disposition home or self-care (01) | DRG 311 ==
LOC: ED 18:42 → 4A 10-27 00:19
PROVIDERS: ADMIT Internal Medicine; ATTEND Internal Medicine
DX: I20.0 Unstable angina (principal); I50.41 Acute combined systolic (congestive) and diastolic (congestive) heart failure; I11.0 Hypertensive heart disease with heart failure; Z82.49 Family history of ischemic heart disease and other diseases of the circulatory system; Y90.9 Presence of alcohol in blood, level not specified; Z79.899 Other long term (current) drug therapy; F10.20 Alcohol dependence, uncomplicated
CPT/HCPCS: 36415; 71045; 78452; 80048; 80061; 80307; 81001; 82550; 82553; 83880; 84132; 84484; 85025; 85379; 85610; 85730; 93005; 93010; 93017; 93306; G0378; A9502; J1650; J1940; J2785